=== PATIENT | male | born 1940 | race Caucasian/White ===

== ENCOUNTER 2018-08-12 10:08 | Inpatient (IN) | payer BC, MEDICARE ==
[~2018-08-12] VITALS: Ht 177.8 cm; Wt 66.0 kg
[2018-08-12] MEDS ORDERED: MULTIVITAMIN PO (10:18)
[2018-08-12] MEDS ORDERED: SODIUM CHLORIDE 0.9% 1,000 ML IV SCH (11:24)
[2018-08-12] MEDS ORDERED: ACETAMINOPHEN 325 MG TABLET PO PRN (11:30)
[2018-08-12] MEDS ORDERED: hydrALAzine 20 MG/ML, 1ML IVPush PRN (11:30)
[2018-08-12] MEDS ORDERED: ONDANSETRON 2MG/ML, 2ML IVPush PRN (11:30)
[2018-08-12] MEDS ORDERED: ONDANSETRON ODT 4 MG PO PRN (11:30)
[2018-08-12] MEDS ORDERED: BISACODYL 10 MG SUPP PR PRN (11:30)
[2018-08-12] MEDS ORDERED: DOCUSATE 100 MG CAPSULE PO PRN (11:30)
[2018-08-12] MEDS ORDERED: ENALAPRILAT 1.25 MG/ML, 2ML IVPush PRN (11:30)
[2018-08-12] MEDS ORDERED: morphine SULFATE 10 MG/ML, 1ML IVPush PRN (11:30)
[2018-08-12 14:28] VITALS: BP 143/80
[2018-08-12] MEDS ORDERED: FENTANYL PF 100 MCG/2ML ONE (15:00)
[2018-08-12] MEDS ORDERED: MIDAZOLAM 1 MG/ML, 2ML ONE (15:00)
[2018-08-12] MEDS ORDERED: HEPARIN 1,000 UNITS/ML, 10ML ONE (15:01)
[2018-08-12] MEDS ORDERED: DIPHENHYDRAMINE 50 MG/ML, 1ML ONE (15:01)
[2018-08-12] MEDS ORDERED: VERAPAMIL 2.5 MG/ML, 2ML ONE (15:01)
[2018-08-12] MEDS ORDERED: LIDOCAINE-MPF 1%, 5ML ONE (15:01)
[2018-08-12] MEDS ORDERED: TICAGRELOR 90 MG TABLET ONE (15:38)
[2018-08-12] MEDS ORDERED: BIVALIRUDIN 250 MG ONE (15:38)
[2018-08-12] MEDS ORDERED: BIVALIRUDIN 250 MG in DEXTROSE 5% 100 ML IV SCH (16:02)
[2018-08-12] MEDS: SODIUM CHLORIDE 0.9% 1,000 ML IV SCH (16:02)
[2018-08-12 16:35] VITALS: BP 157/75
[2018-08-12] MEDS ORDERED: BIVALIRUDIN 250 MG in DEXTROSE 5% 50 ML IV SCH (17:36)
[2018-08-12 18:37] VITALS: BP 121/73
[2018-08-12] MEDS: TICAGRELOR 90 MG TABLET PO SCH (20:13)
[2018-08-12] MEDS: LACTULOSE 10 GM/15 ML UDC PO SCH (20:13)
[2018-08-12] MEDS ORDERED: ATEN50TA41 PO (22:21)
[2018-08-12] MEDS ORDERED: TRAZ-137 PO (22:21)
[2018-08-12] MEDS ORDERED: GABA800T5 PO (22:21)
[2018-08-12] MEDS ORDERED: TOPI100T8 PO (22:21)
[2018-08-12] MEDS ORDERED: ATOR20TA37 PO (22:21)
[2018-08-13] MEDS: SODIUM CHLORIDE 0.9% 1,000 ML IV SCH (00:02)
[2018-08-13 00:47] VITALS: BP 129/72
[2018-08-13 06:54] LABS: BASOPHILS # (AUTO) 0.02 x10^3/uL (0-0.1); BASOPHILS % (AUTO) 0 % (0-1); EOSINOPHILS # (AUTO) 0.09 x10^3/uL (0-0.4); EOSINOPHILS % (AUTO) 2 % (1-7); LYMPHOCYTES # (AUTO) 0.64 x10^3/uL (1-3.4); LYMPHOCYTES % (AUTO) 12 % (22-44); MD NO; MEAN CORPUSCULAR HEMOGLOBIN 33.7 pg (27.5-34.5); MEAN CORPUSCULAR HGB CONC 33.8 g/dL (33.2-36.2); MEAN CORPUSCULAR VOLUME 99.6 fL (81-97); MEAN PLATELET VOLUME 9.4 fL (7.4-10.4); MONOCYTES # (AUTO) 0.56 x10^3/uL (0.2-0.8); MONOCYTES % (AUTO) 10 % (2-9); NEUTROPHILS # (AUTO) 4.23 x10^3/uL (1.8-6.8); NEUTROPHILS % (AUTO) 77 % (42-75); PLATELET COUNT 173 x10^3/uL (130-400); RED CELL DISTRIBUTION WIDTH 14.6 % (9.4-14.8)
[2018-08-13 07:08] LABS: ALBUMIN 3.1 g/dL (3.4-5.0); ANION GAP 7 mmol/L (5-15); CALCIUM 8.6 mg/dL (8.5-10.1); CHLORIDE 105 mmol/L (98-107)
[2018-08-13 07:17] LABS: ALANINE AMINOTRANSFERASE 24 U/L (12-78); ALKALINE PHOSPHATASE 45 U/L (45-117); BILIRUBIN,TOTAL 0.9 mg/dL (0.2-1.0); CHOL/HDL RATIO 2.3; CHOLESTEROL, TOTAL 169 mg/dL (140-239); CREATININE 0.52 mg/dL (0.7-1.3); HDL CHOL % 44 % (26-37); HDL CHOLESTEROL (DIRECT) 74 mg/dL (40-60); LDL CHOLESTEROL,CALCULATED 79 mg/dL (54-169); LDL/HDL RATIO 1.1 (0.5-3.0); TOTAL PROTEIN 5.7 g/dL (6.4-8.2); TRIGLYCERIDES 82 mg/dL (50-200); VLDL CHOLESTEROL 16 mg/dL (0-25)
[2018-08-13] MEDS: ASPIRIN 81 MG TABLET EC PO SCH (07:40)
[2018-08-13] MEDS: MULTIVITAMIN 1 TABLET PO SCH (07:40)
[2018-08-13] MEDS: TICAGRELOR 90 MG TABLET PO SCH ×2 (07:41→20:37)
[2018-08-13] MEDS: LACTULOSE 10 GM/15 ML UDC PO SCH ×2 (07:42→20:38)
[2018-08-13] MEDS: SENNA/DOCUSATE TABLET PO SCH (07:42)
[2018-08-13 08:18] VITALS: BP 130/83
[2018-08-13] MEDS: LISINOPRIL 5 MG TABLET PO SCH (10:49)
[2018-08-13] MEDS ORDERED: TICA90TA PO (14:25)
[2018-08-13] MEDS ORDERED: ASPI81TA45 PO (14:25)
[2018-08-13] MEDS ORDERED: LISI5TAB7 PO (14:25)
[2018-08-13 14:49] VITALS: BP 134/79
[2018-08-13 19:07] VITALS: BP 117/65
[2018-08-14 01:21] VITALS: BP 127/75
[2018-08-14 08:54] VITALS: BP 118/75
[2018-08-14] MEDS: SENNA/DOCUSATE TABLET PO SCH (09:00)
[2018-08-14] MEDS: ASPIRIN 81 MG TABLET EC PO SCH (09:00)
[2018-08-14] MEDS: MULTIVITAMIN 1 TABLET PO SCH (09:00)
[2018-08-14] MEDS: LACTULOSE 10 GM/15 ML UDC PO SCH (09:00)
[2018-08-14] MEDS: TICAGRELOR 90 MG TABLET PO SCH (09:01)
[2018-08-14] MEDS: LISINOPRIL 5 MG TABLET PO SCH (09:01)
[2018-08-14] MEDS ORDERED: CARV3.122 PO (09:12)
[2018-08-14] MEDS ORDERED: ATOR40TA78 PO (11:34)
== END 2018-08-14 12:35 | disposition home or self-care (01) | DRG 247 ==
LOC: ED 10:14 → EDIP 10:15 → ED 11:27 → 5SO 13:40
PROVIDERS: ADMIT Internal Medicine; ATTEND Internal Medicine
PROC: 4A023N7 Measurement of Cardiac Sampling and Pressure, Left Heart, Percutaneous Approach (ICD-10-PCS; principal; 2018-08-12)
PROC: 027034Z Dilation of Coronary Artery, One Artery with Drug-eluting Intraluminal Device, Percutaneous Approach (ICD-10-PCS; 2018-08-12)
PROC: B2111ZZ Fluoroscopy of Multiple Coronary Arteries using Low Osmolar Contrast (ICD-10-PCS; 2018-08-12)
PROC: B2151ZZ Fluoroscopy of Left Heart using Low Osmolar Contrast (ICD-10-PCS; 2018-08-12)
DX: I21.4 Non-ST elevation (NSTEMI) myocardial infarction (principal); E78.5 Hyperlipidemia, unspecified; Z96.642 Presence of left artificial hip joint; I25.110 Atherosclerotic heart disease of native coronary artery with unstable angina pectoris; I10 Essential (primary) hypertension; Z86.12 Personal history of poliomyelitis; Z87.891 Personal history of nicotine dependence
CPT/HCPCS: 36415; 93458; 99285; C9600; 71045; 80053; 80061; 83735; 84100; 84443; 84484; 85025; 93005; 93306; 99156; 99157; C1894; G0378; J0583; J1644; J2250; J3010; C1725; C1769; C1874; C1887; J1200; J7030; Q9967